=== PATIENT | female | born 1995 | race Caucasian/White ===

== ENCOUNTER 2025-06-29 13:00 | Outpatient (RCR) | payer OTHER, SELFPAY ==
[2025-06-16 13:08] VITALS: BP 140/100; PULSE 76; TEMP 37; BMI 24.7
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
--- NOTE | 2025-06-18 16:01 | HO.PHP ---
Clients case was open and reviewed in teams.
--- NOTE | 2025-06-18 20:20 | HO.PS.ADMBH ---
[facility] Date of Service: 06/18/25 Chief Complaint: MDD,AUD Sources of Information: patient interviewed, chart reviewed and crisis/core team assessment reviewed HPI Narrative: Patient is a 30 yo female with history of depression, anxiety, PTSD, AUD and polysubstance abuse (stimulant abuse, cocaine abuse) who was referred to [facility] by N stemming from crisis evaluation over 3 weeks ago. She discusses trouble psychosocial stressors including grief over the loss of her brother, problems with relationships with relatives, longstanding issues with codependency, low self-worth and feeling like a burden to everyone. ?I feel disgust with myself . Reports struggles with heavy alcohol use and says she is not good at dealing with her feelings . She continues to struggle with depression isolation anxiety. She she endorses feelings of hopelessness helplessness lack of enjoyment in life, in recent months she has experienced passive SI but denies any urge intention or plan to harm self. Last true SI thought she says was over a year ago. She reports her mood is ?all over the place , a lot of internal rumination, anxiety, impulsivity, dysregulated emotions and behaviors. Denies any risk-taking behaviors This is her 1st [facility] admission and says she needs help with emotional regulation, feeling better about herself in learning better ways of coping rather than continually being self-destructive and self sabotaging, which she says she does even without alcohol. She has been trying to get sober since May 2024 has had a few slip ups in the past year. Patient currently on a wait list for therapist and provider through [facility]. She is not currently on any psychotropic medication but has a history of outpatient treatment and also engaged in DBT for 4 years. She reports that drug and alcohol interfered with treatment between 2021 and 2022, although felt her fire protection equipment technician was not understanding, and overall the experience was very invalidating . She cites this as one of a few reasons that she is not interested in medication at this time Past Psychiatric History: No prior IPLOC, PHP, respite, detox/rehab admissions SA: denies SIB: History of cutting and burning on banging her head. Two months ago Aggression or antisocial behaviors: denies Denies legal history Pertinent developmental hx: Previous diagnoses: Psychiatrist: none Therapist: none (in process of getting a therapist and provider through [facility]) PCP: Lucas Vasquez RN, [facility] Previous trials: Zoloft, Lexapro, Wellbutrin, Prozac CURRENT MEDICATIONS: losartan 100 mg qd oral BCP daily Potassium PMFSH Medical History (Updated 06/22/25 @ 05:56 by Kayla Mulligan MD) History of multiple concussions Sciatica Chronic neck pain Narrative: Kidney reflux hx of cardiomyopathy exercise-induced asthma Surgeries: ACL and meniscus injury/repair 01/2024 Seizures: denies Concussions/TBI x3 Ht: 5'6 Wt:125 lbs ALL: NKDA Surgical History (Updated 06/16/25 @ 13:06 by Marbella Scales RN) S/P ACL surgery Family History: Reports mental health issues on both sides of the family including bipolar disorder Reports dad having narcissistic traits Reports suicide in 2 cousins (1 when patient was in high school and the other was recent and ( Brother of medical complications in 2019 Social History: Lives alone Substance History: Alcohol use cyclical, heavy, history of binge drinking with blackouts every 2 days. Was sober for 6 months until relapsing in November. last used a month ago Cocaine use in the past >1 yr ago Marijuana use daily Diagnostics Vital Signs (24Hr): BMI result Body Mass Index 24.7 Labs Labs: Laboratory Results - last 48 hr 06/18/25 09:17 Urine Opiates Screen Not Detected Ur Buprenorphine Scrn Not Detected Ur Oxycodone Screen Not Detected Urine Methadone Screen Not Detected Urine Fentanyl Screen Not Detected Ur Barbiturates Screen Not Detected Ur Phencyclidine Scrn Not Detected Ur Amphetamines Screen Not Detected U Benzodiazepines Scrn Not Detected Urine Cocaine Screen Not Detected U Marijuana (THC) Screen POSITIVE H Meds/Allergies Meds Home Medications ?Medication ?Instructions ?Recorded ?Confirmed ?Type losartan 100 mg tablet 100 mg PO DAILY 06/16/25 06/16/25 History norethindrone acetate 1.5 1 tab PO DAILY 06/16/25 06/16/25 History mg-ethinyl estradiol 30 mcg tablet (Aurovela) Allergies Allergies Allergy/AdvReac Type Severity Reaction Status Date / Time No Known Allergies Allergy Verified 06/16/25 13:08 Mental Status Exam Mental Status Exam Narrative: Alert, oriented, in no acute distress. Calm, cooperative. No psychomotor agitation or neurovegetative retardation. Eye contact maintained. Mood depressed, affect constricted, irritable edge without notable lability. Speech normal. Thought process linear, coherent. Thought content related to stressors, transient hopelessness and passive SI with any suicidal thoughts, intention, urge or plan. Denies any aggressive ideation or HI. No paranoia or delusional content elicited. No evidence of psychosis. Insight and judgment - fair but adequate Assessment & Plan Assessment & Plan (1) Other specified persistent mood disorders: Status: Acute Code(s): F34.89 - Other specified persistent mood disorders (2) Alcohol use disorder: Status: Acute Code(s): F10.90 - Alcohol use, unspecified, uncomplicated (3) Cocaine use disorder in remission: Status: Acute Code(s): F14.91 - Cocaine use, unspecified, in remission (4) Post traumatic stress disorder (PTSD): Status: Acute Code(s): F43.10 - Post-traumatic stress disorder, unspecified (5) Cannabis use disorder: Status: Acute Code(s): F12.90 - Cannabis use, unspecified, uncomplicated Plan Admit to PHP VS reviewed: afebrile, BP 140/100;?76 bpm (patient encouraged to imprpve adherence w losartan) continue regular medications for now Routine lab work as indicated - Urine tox screen 06/18 negative for all substances except for THC EKG, routine for baseline QTc for medication considerations as indicated UDS as indicated [facility] reviewed Continue to monitor as per protocol Patient educated on: diagnosis, medication risk/benefits, substance abuse and medical condition (htn) Informed Consent: understands Reason for continued partial hosp. stay Substantial Risk for: inability to function and med/psych decompensation Certification I certify that partial hospital treatment is medically necessary due to the symptoms and problems resulting from the patient's mental illness and the failure to treat the patient at the partial hospital level of care would likely result in the patient requiring inpatient psychiatric care which could not be prevented at a less intensive level of care. Time Spent With Patient Time: Total time managing care of this patient today __60__ minutes.
[2025-06-19 05:31] LABS: Cannabinoid Screen Urine POSITIVE (Not Detect)
--- NOTE | 2025-06-25 14:51 | HO.PHP ---
PHP admin, Carmela, faxed the referral to [facility] for [place] for OP therapist.
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
== END 2025-06-29 23:59 | disposition home or self-care (01) ==
LOC: HO.PHPA 13:00
PROVIDERS: Visit Provider Psychiatry & Neurology Psychiatry
DX: F34.89 Other specified persistent mood disorders (principal); F43.10 Post-traumatic stress disorder, unspecified; F10.90 Alcohol use, unspecified, uncomplicated; F12.90 Cannabis use, unspecified, uncomplicated; F14.91 Cocaine use, unspecified, in remission
CPT/HCPCS: 80307; 90791; 90853

== ENCOUNTER → 2025-06-29 13:00 | Outpatient (BNV) | payer OTHER, SELFPAY | PROVIDERS: Visit Provider Psychiatry & Neurology Psychiatry | DX: F34.89 Other specified persistent mood disorders (principal); F10.90 Alcohol use, unspecified, uncomplicated; F14.91 Cocaine use, unspecified, in remission; F43.10 Post-traumatic stress disorder, unspecified; F12.90 Cannabis use, unspecified, uncomplicated | CPT/HCPCS: 99213 ==